=== PATIENT | male | born 1945 | race Caucasian/White ===

== ENCOUNTER 2018-12-23 05:05 | Day surgery (SDC) | payer MEDICARE, BC ==
[2018-12-22 14:33] LABS: BASOPHILS 0.3 % (0-2); HEMATOCRIT 39.9 % (42.0-54.0); HEMOGLOBIN 14.4 g/dL (13.5-17.5); IMMATURE GRANULOCYTES 0.3 % (0-5); LYMPHOCYTES 13.3 % (15-50); MCHC 36.1 g/dL (31.0-37.0); MCV 91.5 fL (80.0-100.0); MEAN PLATELET VOLUME 9.5 fL (7.4-10.4); MONOCYTES 7.7 % (2-11); NEUTROPHILS 75.4 % (40-80); PLATELET COUNT 160 10x3/uL (130-400); RBC 4.36 10x6/uL (4.20-6.10); RDW 12.1 % (11.5-14.5); WBC 7.7 10x3/uL (4.8-10.8)
[2018-12-22 14:53] LABS: ANION GAP 8.6 mmol/L (8-16); CALCIUM 8.9 mg/dL (8.5-10.1); CARBON DIOXIDE 32.1 mmol/L (21.0-32.0); CREATININE - SERUM 1.5 mg/dL (0.6-1.3); POTASSIUM - SERUM 3.7 mmol/L (3.5-5.1)
[~2018-12-23] VITALS: Ht 193 cm; Wt 102.1 kg
[~2018-12-23 05:05] MED LIST: BETAPACE 80 MG80 MG PO; COZAAR100 MG PO; DOXYCYCLINE HY100 M2 PO; ELIQUIS5 MG PO; FLOMAX0.4 MG PO; LEXAPRO10 MG PO; METFORMIN HCL500 M1 PO; MONODOX100 MG PO; MYRBETRIQ50 MG PO; NIFEDIPINE ER60 MG PO; OMEPRAZOLE20 M1 PO; PLAVIX75 MG PO; ZESTRIL20 MG PO; ZOCOR40 MG PO
[2018-12-23 05:56] VITALS: BP 157/83; Ht 193 cm; Wt 102.1 kg
[2018-12-23] MEDS ORDERED: HYDROCODON-ACE1 EA10 PO (09:19)
--- NOTE | 2018-12-23 11:04 | NUR ---
[address] DIET SERVED
[2018-12-23 21:03] LABS: APPEARANCE CLEAR (CLEAR); BILIRUBIN NEGATIVE (NEGATIVE); COLOR YELLOW (YELLOW); GLUCOSE 50 mg/dL (NEGATIVE); KETONE NEGATIVE (NEGATIVE); NITRITE NEGATIVE (NEGATIVE); PROTEIN 1+ mg/dL (NEGATIVE); UROBILINOGEN NORMAL (NORMAL)
[2018-12-23 21:04] LABS: WHITE CELLS - URINE OCC /hpf (NEGATIVE)
--- NOTE | 2018-12-25 13:49 | OP ---
PATIENT NAME: ANGELA RICE MEDICAL RECORD: [id number] LOCATION:[facility] ADMISSION DATE: SURGEON: JESSE CARNEY MD DATE OF OPERATION: 12/23/2018 PREOPERATIVE DIAGNOSES: 1. Bilateral inguinal hernias. 2. Ventral hernia. 3. Coronary artery disease. 4. Hypertension. 5. Diabetes mellitus. 6. Hypercholesterolemia. POSTOPERATIVE DIAGNOSES: 1. Bilateral inguinal hernias. 2. Ventral hernia. 3. Coronary artery disease. 4. Hypertension. 5. Diabetes mellitus. 6. Hypercholesterolemia. PROCEDURES: 1. Bilateral inguinal hernia repairs with medium PHS mesh. 2. Ventral hernia repair without mesh. SURGEON: Jesse Carney MD REPORT OF PROCEDURE: The patient's abdomen was prepped and draped in sterile fashion. We approached the umbilical hernia first. A semicircular incision was made on the inferior aspect of the umbilicus. Electrocautery was used to dissect through the subcutaneous tissues. We ended up elevating the umbilicus and just above this, there was a hernia defect. This was fat containing and easily reducible. We resected the hernia sac down to the fascial edges. The fascial defect was a little over a centimeter in size. After we freed up the fascial edges, then we reapproximated the fascia transversely using interrupted 0 Prolenes times 4. With this, the fascia came together nicely with no tension. The wound was then irrigated out with normal saline. Any bleeding from the area was then treated with electrocautery. At this point, the umbilicus was tacked down using an interrupted 3-0 Vicryl and the subcutaneous tissues were reapproximated with interrupted 3-0 Vicryls. The skin was closed with running subcutaneous 5-0 Monocryl after it was infused with 7 mL of 1% lidocaine with epinephrine. We then approached the patient's right groin region. An oblique incision was made in the right inguinal region and electrocautery was used to dissect through the subcutaneous tissue to the external oblique fascia. This fascia was opened up with electrocautery to the external ring. We elevated the spermatic cord and a Ernesto was placed around it. The ilioinguinal nerve was found and high ligated. The patient had a direct hernia defect, which was fat containing. We opened up the inguinal floor and out the preperitoneal space of Retzius. When we did this, we were able to place a medium PHS mesh and this was sutured down on all sides using interrupted 0 Vicryls. The wound was irrigated out with normal saline. The patient was also noted to have a large lipoma that was just lateral and superior to the entrance of the spermatic cord. This was completely excised. We then reapproximated the external oblique fascia with running 2-0 Vicryl. Jono was closed with interrupted 3-0 Vicryl and the skin was closed with running subcutaneous 5-0 Monocryl. An 8 mL of 1% OPERATIVE REPORT [id number] ANGELA RICE lidocaine with epinephrine was infused into the surrounding tissues. We then approached the left side. An oblique incision was made above the inguinal ligament and electrocautery was used to dissect through the subcutaneous tissues to the external oblique fascia. This fascia was opened up to the external ring using electrocautery. A Ernesto was placed around the spermatic cord. We found what appeared to be the ilioinguinal nerve and this was high ligated. The patient had an indirect hernia defect and a cord lipoma. The cord lipoma was excised and an opening was then made in the inguinal floor. We out the preperitoneal space of Retzius and inserted a medium PHS mesh. This was sutured down on all sides using interrupted 0 Vicryls. We irrigated out the wound with normal saline. The external oblique fascia was then closed with running 2-0 Vicryl, Jono's was closed with interrupted 3-0 Vicryl, and the skin was closed with running subcutaneous 5-0 Monocryl. An 8 mL of 1% lidocaine with epinephrine was infused into the surrounding tissues and the wounds were all dressed appropriately. COMPLICATIONS: None. CONDITION: Stable. ANESTHESIA: General endotracheal and local. BLOOD LOSS: Minimal. TRANSINT:[id number] Voice Confirmation ID: [id number] DOCUMENT ID: [id number] JESSE CARNEY MD at 1349 CC: MENG FRAZIER and JH GRAF [id number] DICTATION DATE: 12/23/1833 EXTRUDING DEPARTMENT SUPERVISOR: 12/23/1853 [facility] 12/23/18 [id number] [place] [address]
== END 2018-12-23 20:05 | disposition home or self-care (01) ==
LOC: D.OPS 05:05 → D.PAN 07:15 → D.OPS 07:15
PROVIDERS: ATTEND Surgery
DX: K40.20 Bilateral inguinal hernia, without obstruction or gangrene, not specified as recurrent (principal); K43.9 Ventral hernia without obstruction or gangrene; I25.10 Atherosclerotic heart disease of native coronary artery without angina pectoris; I10 Essential (primary) hypertension; E11.9 Type 2 diabetes mellitus without complications; E78.00 Pure hypercholesterolemia, unspecified